=== PATIENT | female | born 1985 | race Two or more races ===

== ENCOUNTER 2024-05-26 09:58 | Emergency (ER) | payer BC ==
[~2024-05-26] VITALS: Ht 165.1 cm; Wt 77.1 kg
[2024-05-26] MEDS ORDERED: ALBUTEROL FS 2.5 MG/3 ML VIAL.NEB ONE (10:55)
[2024-05-26] MEDS ORDERED: IPRATROPIUM NEB FS 0.5 MG/2.5 ML AMPUL.NEB ONE (10:56)
[2024-05-26 11:03] VITALS: O2SAT 97
[2024-05-26] MEDS: ALBUTEROL FS 2.5 MG/3 ML VIAL.NEB CONTNEB ONE (11:03)
[2024-05-26] MEDS: IPRATROPIUM NEB FS 0.5 MG/2.5 ML AMPUL.NEB NEB ONE (11:03)
[2024-05-26 11:20] VITALS: O2SAT 100
[2024-05-26] MEDS ORDERED: AZIT250T13 PO (11:42)
[2024-05-26] MEDS: AZITHROMYCIN 250 MG TABLET PO ONE (12:11)
[2024-05-26 12:12] VITALS: BP 151/102; TEMP 100.6; O2SAT 100
== END 2024-05-26 12:12 | disposition home or self-care (01) ==
LOC: ER 10:03
DX: R06.02 Shortness of breath (principal); J45.909 Unspecified asthma, uncomplicated; Z20.822 Contact with and (suspected) exposure to COVID-19; Z88.0 Allergy status to penicillin
CPT/HCPCS: 71045-TC

== ENCOUNTER 2025-06-07 19:14 | Emergency (ER) | payer BC ==
[~2025-06-07] VITALS: Ht 165.1 cm; Wt 75.7 kg
[~2025-06-07 19:14] MED LIST: AZIT250T13 PO
[2025-06-07 20:28] VITALS: BP 139/84; TEMP 97.9
[2025-06-07 21:00] LABS: APPEARANCE,URINE SLIGHTLY CLOUDY (CLEAR); BLOOD, URINE 3+ Ery/uL (NEGATIVE); LEUKOCYTE ESTERASE ,URINE 3+ (NEGATIVE); NITRITE, URINE NEGATIVE (NEGATIVE); UGLUCOSE NEGATIVE (NEGATIVE)
[2025-06-07 21:19] LABS: ADD URINE CULTURE YES; SQUAMOUS EPITHELIAL CELL,UR Moderate /HPF (None Seen)
[2025-06-07] MEDS ORDERED: PHEN-895 PO (21:44)
[2025-06-07] MEDS ORDERED: CEFP200T14 PO (21:44)
[2025-06-07] MEDS ORDERED: LIDOCAINE 1% INJ 50 ML MDV IJ ONE (21:55)
[2025-06-07] MEDS ORDERED: CEFTRIAXONE 1 G VIAL ONE (21:56)
[2025-06-07] MEDS: CEFTRIAXONE 1 G VIAL IM ONE (22:05)
[2025-06-07 22:06] VITALS: O2SAT 99
== END 2025-06-07 22:06 | disposition home or self-care (01) ==
LOC: ER 19:15
DX: N39.0 Urinary tract infection, site not specified (principal); B96.20 Unspecified Escherichia coli [E. coli] as the cause of diseases classified elsewhere; Z88.0 Allergy status to penicillin
CPT/HCPCS: 99283; 96372; 81001; J3490; J0696